=== PATIENT | female | born 1985 | race Caucasian/White ===

== ENCOUNTER → 2018-11-01 | Emergency (ER) | payer OTHER, SELFPAY ==
[~2018-11-01] MED LIST: Ibuprofen 800 MG TAB ONE
== END ==
LOC: NAV ERS 22:54
DX: G89.29 Other chronic pain (principal); M54.9 Dorsalgia, unspecified; Z59.0 Homelessness; F17.210 Nicotine dependence, cigarettes, uncomplicated
CPT/HCPCS: 99284

== ENCOUNTER 2020-08-21 15:57 | Emergency (ER) | payer SELFPAY | END 2020-08-21 16:35 | LOC: NAV ERS 15:57 | DX: Z02.89 Encounter for other administrative examinations (principal); R00.0 Tachycardia, unspecified; F17.210 Nicotine dependence, cigarettes, uncomplicated; F32.9 Major depressive disorder, single episode, unspecified | CPT/HCPCS: 99283 ==

== ENCOUNTER 2021-01-23 09:15 | Emergency (ER) | payer SELFPAY | END 2021-01-23 09:45 | disposition home or self-care (01) | LOC: NAV ERS 09:15 | DX: M25.512 Pain in left shoulder (principal) | CPT/HCPCS: 99406 ==

== ENCOUNTER 2023-03-14 10:44 | Emergency (ER) | payer SELFPAY ==
[2023-03-14 11:37] LABS: Bilirubin Large (Negative); Blood, Urine Large (Negative); Clarity Slightly Cloudy (Clear); Glucose, Urine (Dipstick) 100 mg/dL (Negative); Ketone, Urine 15 mg/dL (Negative); Leukocyte Large (Negative); Nitrite Positive (Negative); Protein, Urine (Dipstick) > or equal to 300 mg/dL (Neg-Trace); pH, Urine 8.5 (5.0-9.0)
[2023-03-14 11:41] LABS: Bacteria/HPF Rare-Few HPF (None Seen); CAUTI Indications for Culture Acute Hematuria; RBC/HPF Greater than 50 HPF (0-3); Squamous Epithelial 0-3 HPF (0-3)
[2023-03-14 11:42] LABS: Urine Culture Reflex Yes Yes
[2023-03-14 11:43] LABS: Amphetamine Not Detected (NotDetected); Barbiturates Screen Not Detected (NotDetected); Benzodiazepine Screen Not Detected (NotDetected); Cocaine Metabolite Screen Detected (NotDetected); Methadone Not Detected (NotDetected); Methamphetamine Not Detected (NotDetected); Opiate Screen Not Detected (NotDetected); Oxycodone Screen Not Detected (NotDetected); Phencyclidine (PCP) Not Detected (NotDetected); THC/Cannabinoid Screen Not Detected (NotDetected); Tricyclic Screen Not Detected (NotDetected)
[2023-03-14 11:45] LABS: Pregnancy Test - Urine (BHCG) Negative (Negative)
[2023-03-14 11:46] LABS: Pregu Control Background? CLEAR/WHITE (CLR/WHITE); Pregu Control Bar Appear? YES (CONTROL BAR)
[2023-03-14] MEDS ORDERED: Naproxen 500 MG TAB ONE (13:32)
== END 2023-03-14 13:36 | disposition home or self-care (01) ==
LOC: NAV ERS 10:44
DX: N93.8 Other specified abnormal uterine and vaginal bleeding (principal); F17.210 Nicotine dependence, cigarettes, uncomplicated
CPT/HCPCS: 80306; 81001; 81025; 87086; 99284

== ENCOUNTER 2023-09-04 14:58 | Emergency (ER) | payer SELFPAY | END 2023-09-04 16:21 | disposition home or self-care (01) | LOC: NAV ERS 14:58 | DX: N94.819 Vulvodynia, unspecified (principal); F17.210 Nicotine dependence, cigarettes, uncomplicated | CPT/HCPCS: 99282 ==

== ENCOUNTER 2024-07-17 18:12 | Emergency (ER) | payer MEDICAID, SELFPAY ==
[2024-07-17 21:17] LABS: Bilirubin Small (Negative); Blood, Urine Negative (Negative); Clarity Clear (Clear); Glucose, Urine (Dipstick) Negative (Negative); Ketone, Urine 15 mg/dL (Negative); Leukocyte Trace (Negative); Nitrite Negative (Negative); Protein, Urine (Dipstick) 30 mg/dL (Neg-Trace); Specific Gravity, Urine 1.025 (1.005-1.030); Urobilinogen 0.2 mg/dL (Less than 2); pH, Urine 5.5 (5.0-9.0)
[2024-07-17 21:24] LABS: Amphetamine Detected (NotDetected); Barbiturates Screen Not Detected (NotDetected); Benzodiazepine Screen Not Detected (NotDetected); Cocaine Metabolite Screen Not Detected (NotDetected); Methadone Not Detected (NotDetected); Methamphetamine Detected (NotDetected); Opiate Screen Not Detected (NotDetected); Oxycodone Screen Not Detected (NotDetected); Phencyclidine (PCP) Not Detected (NotDetected); THC/Cannabinoid Screen Detected (NotDetected); Tricyclic Screen Not Detected (NotDetected)
[2024-07-17 21:28] LABS: Bacteria/HPF Rare-Few HPF (None Seen); CAUTI Indications for Culture Alt mental st,lethar; RBC/HPF 0-3 HPF (0-3); Squamous Epithelial 0-3 HPF (0-3); Urine Culture Reflex No No
== END 2024-07-17 22:35 | disposition home or self-care (01) ==
LOC: NAV ERS 18:12
DX: F15.10 Other stimulant abuse, uncomplicated (principal); F17.210 Nicotine dependence, cigarettes, uncomplicated; Z59.00 Homelessness unspecified
CPT/HCPCS: 71045; 80306; 81001; 93005

== ENCOUNTER 2025-03-07 13:09 | Emergency (ER) | payer MEDICAID, SELFPAY | END 2025-03-07 14:55 | disposition home or self-care (01) | LOC: NAV ERS 13:09 | DX: K43.9 Ventral hernia without obstruction or gangrene (principal); N92.6 Irregular menstruation, unspecified; R51.9 Headache, unspecified; G89.29 Other chronic pain; F17.210 Nicotine dependence, cigarettes, uncomplicated | CPT/HCPCS: 99283 ==